=== PATIENT | male | born 1955 | race African-American/Black ===

== ENCOUNTER → 2019-05-09 | Outpatient (CLI) | payer OTHER ==
--- NOTE | 2019-05-09 13:03 | RAD ---
EXAM: Chest, 2 views; right knee, 2 views; right ankle, 2 views. HISTORY: Collapsed lung. Pain. COMPARISON: None. FINDINGS: Chest: 2 views of the chest are obtained. There is hyperinflation due to pulmonary emphysema. There are associated biapical bullae and there is apical pleural parenchymal scarring. There is a small circumscribed nodule overlying the right mid thorax which may be due to a nipple shadow. The heart is normal in size. There is no pleural effusion or pneumothorax. Right ankle: 2 views of the right ankle are obtained. There is no acute fracture, dislocation or subluxation. There is a prominent os trigonum, an incidental finding. There are suspected bony mineralization. No osteochondral lesion is seen. Right knee: 2 views of the right knee are obtained. There is a large sclerotic lesion involving the distal femoral metadiaphysis, consistent with a bone infarct. This measures approximately 16 cm in length. No pathologic fracture is seen. There is no joint effusion. IMPRESSION: 1. Emphysema with biapical bullous changes and pleural parenchymal scarring. 2. Small nodule overlying the right mid thorax possibly due to a nipple shadow. Radiographic follow-up following placement of nipple markers can be performed to exclude a noncalcified pulmonary nodule in this location. 3. 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 4. Suspected bone demineralization. Electronically signed by: Snadra Garcia MD (05/09/2019 1:00 PM) [place] [id number]
== END | disposition home or self-care (01) ==
LOC: PF 07:55
PROVIDERS: ATTEND Family Medicine Adolescent Medicine
DX: Z02.71 Encounter for disability determination (principal); M25.571 Pain in right ankle and joints of right foot; J44.9 Chronic obstructive pulmonary disease, unspecified; J98.4 Other disorders of lung; R91.1 Solitary pulmonary nodule; M25.861 Other specified joint disorders, right knee
CPT/HCPCS: 71046; 73560; 73600; 94010